=== PATIENT | male | born 1960 | race Caucasian/White ===

== ENCOUNTER 2019-10-10 12:45 | Outpatient (RCR) | payer OTHER, SELFPAY ==
--- NOTE | 2019-08-29 17:42 | PT.OIE ---
Current Diagnoses Weakness (08/29/19) Other reduced mobility (08/29/19) Visit Care Team Role Provider Type Kd Melendez MD Primary Care Provider Physician Specialty: Family Practice Address: [address] [place] [address] [address], [place], [address] Email: [email or web address] Ted Hubbard Attending Provider Non-Staff Specialty: Medical Address: [address] [place] [address], [address], [place], [address] Email: Physical Therapy Initial Evaluation PT-OP-A Visit Information Start: 08/25/19 20:08 Freq: Status: Active Protocol: Document 08/29/19 09:45 LRN (Rec: 08/29/19 10:46 LRN [id number]) Out-Patient Physical Therapy Visit Information Visit Information Visit Type Initial Evaluation Visit Note Extra time taken for history review Visit Start Time 09:45 Visit Stop Time 10:45 Total Visit Minutes 60 Visit Number 1 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 Current L foot plantar fasciitis. Hx of fx neck - 2003 PT-OP-B Current Condition Start: 08/25/19 20:08 Freq: Status: Active Protocol: Document 08/29/19 09:45 LRN (Rec: 08/29/19 10:46 LRN [id number]) Current Condition History of Current Condition Onset Date 07/25/19 Current Complaints Poor gait, weakness of RLE and shoulder, pain in R shoulder. History of Current Condition Pt reports having 5 strokes within a 6 day period. His final stroke was on 07/25/19 causing paralysis of his R side affecting his ERIK in the brainstem, and slurred speech . Prior Treatments and Tests MRI's and CT scans. Reports unavailable. Developmental History Developmental History 07/20/19, , , and . Pt reports 30min after having a flu shot on 07/20/19 he developed L sided headaches and R foot drop while at work. He also has a little trouble swallowing. He was given TPA at [facility], 10-15' later symptoms cleared. He was air lifted to [facility], then driven to [facility]. On he had a MRI and was given an Ativan x 2 due to claustrophobia and developed R facial droop for 1 -2 days. Given Ativan for another MRI and 20-30' later had total R paralysis. MRI showed no stroke. Symptom was only stuttering and he could walk w/o a cane. On 08/23/19 he was sent home to do physical therapy. On 08/24/19 his hand became shaky, went to bed, but realized his hand was loosing strength and became paralyzed on the R side , then the L side. After 10 minutes he was able to stand up and walk onto a stretcher and was taken to [facility]. He states by the time he reached [facility] he had recovered. A head CT found no brain change. Next day he was to be discharged, but within the hour to discharge he had another stroke with R LE paralysis. On 08/25/18 he was taken to [facility] by personal car, and when he reached [facility] he was given another test that showed he had a stroke in the ERIK region of the brainstem. [facility] wanted him to do PT in , but he requested PT @ [facility] and did 2 weeks in PT prior to being discharged home. Treatment Goals Patient/Caregiver Goals Pt goal is to normalize gait to avoid developing back or hip problems. Pt goal is to strengthen the R shoulder to be able to hang pots/pans for storage. Pt goal is to be able to normalize the ability to open up the R hand (separate fingers). Pt goal is to be able to be placed on an exercise program he can continue at his local gym. 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 Current Functional Impairments (Reported) Functional Limitations- ADL's R shoulder pain with lifting of R UE out to the side and has difficulty hanging pots back up. Functional Limitations- Mobility/Gait Gait deviation due to R LE weakness. Walking, catches toes sometimes. Functional Limitations- Recreation/ 1 week of exercising (now on Hobbies 2nd week) at local gym 3x/week for 30 minutes and doing leg strengthening on machines. 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 Current L foot plantar fasciitis. Neck fx 2004. PT-OP-D Balance Start: 08/25/19 20:08 Freq: Status: Active Protocol: Document 08/29/19 09:45 LRN (Rec: 08/29/19 16:50 LRN [id number]) Balance Tests Hendrickson Balance Test Hendrickson Balance Test Score 51 Hendrickson Impairment Rating 1 to 19% Impaired (Score 45-55 ) Single Limb Standing Single Limb- Right 3 Single Limb- Left 9 Tandem Tandem Standing L foot back: 29.75, R foot back: 60, balance w/arms PT-OP-G Mobility & Gait Start: 08/25/19 20:08 Freq: Status: Active Protocol: Document 08/29/19 09:45 LRN (Rec: 08/29/19 16:50 LRN [id number]) OP Gait Assessment Gait Gait Assistance Required: Independent Able to Maintain Weight Bearing Status Yes During Gait Assistive Devices Assistive Device None Orthotic/Prosthetic Devices or Brace: No Gait Deviations General Gait Pattern Decreased Feet Clearance, Lateral Trunk Lean Comments Gait Comments RLE: Lacks heel strike and clearance of foot on swing through phase. Trendelenburg type gait with lean Right. Gait speed: 10' walk: 2.17 ft/sec 20' walk: 2.41 ft/sec (avg for 60-69 yr olds: 1.26 ft/sec, preferred 3.11 ft/sec, max 3.95 ft/sec) Stair Climbing Evaluation Evaluation Level of Assist On Stairs Independent Devices Stair Climbing Assistive Devices None Technique/Endurance Stair Climbing Direction Ascend and Descend Stair Climbing Technique Step Over Step Number of Steps Climbed 4 Stair Climbing Set # Repetitions (reps) 2 Comments Stair Climbing Comments Lacks smooth lift onto RLE ( shoves self up step on the right) ascending steps. PT-OP-H Neuro Start: 08/25/19 20:08 Freq: Status: Active Protocol: Document 08/29/19 09:45 LRN (Rec: 08/29/19 16:50 LRN [id number]) Sensation Evaluation Gross Sensation Gross Sensation WNL Coordination Evaluation Lower Extremity Tests Right Heel on Wen Test Minimal Impairment Lower Extremity Fixation/Position Normal Performance Holding Test Vital Signs Comments Vital Signs Comments Pt reports BP is usually 155/ 100 and Pulse is 55. PT-OP-J Posture/Palpation/Skin Start: 08/25/19 20:08 Freq: Status: Active Protocol: Document 08/29/19 09:45 LRN (Rec: 08/29/19 10:46 LRN [id number]) Posture Evaluation Position Standing Evaluation View All positions Head/C-Spine Posture Side Bent Left T-Spine Posture Increased Kyphosis L-Spine Posture Increased Lordosis Comments Posture Comments Mild sway back posturing. PT-OP-K Range of Motion Start: 08/25/19 20:08 Freq: Status: Active Protocol: Document 08/29/19 09:45 LRN (Rec: 08/29/19 16:50 LRN [id number]) Hip Goniometric Range of Motion Hip Left Active Hip ROM WFL Yes Testing Position Sitting Internal Rotation 18 Right Active Hip ROM WFL No Testing Position Sitting Internal Rotation 7 Ankle and Foot Goniometric Range of Motion Ankle and Foot Left Active Ankle/Foot ROM WFL Yes Testing Position Supine Dorsiflexion with Knee Extended 7 Eversion 12 Right Active Ankle/Foot ROM WFL No Testing Position Supine Eversion 0 Ankle and Foot ROM Limitations ROM Limitations Muscle Weakness Comments R ankle DF: Lacks 15 deg's to neutral. R PF - WNL PT-OP-M Strength Start: 08/25/19 20:08 Freq: Status: Active Protocol: Document 08/29/19 09:45 LRN (Rec: 08/29/19 16:50 LRN [id number]) Trunk Strength Trunk Manual Muscle Testing Testing Position Supine Core Stabilization Pt unable to maintain core stability with MMT of LE's. Hip Strength Hip Manual Muscle Testing Right Flexion (L2) 5 Normal Extension (S1) 3- Fair- Abduction 4+ Good+ Adduction 2+ Poor+ External Rotation 3- Fair- Internal Rotation 2- Poor- Left Comments WNL: Generally 5/5. Knee Strength Knee Manual Muscle Testing Right Flexion (S2) 3+ Fair+ Extension (L3) 3+ Fair+ Left Comments WNL - 5/5 Ankle/Foot Strength Ankle and Foot Manual Muscle Testing Right Dorsiflexion (L4) 2- Poor- Plantarflexion (S1) 4+ Good+ Inversion 4+ Good+ Eversion (S1) 1 Trace Left Comments WNL - 5/5 PT-OP-Q Treatments Start: 08/25/19 20:08 Freq: Status: Active Protocol: Document 08/29/19 09:45 LRN (Rec: 08/29/19 16:50 LRN [id number]) Self-Care/Home Management Treatment Education Patient Education Home Exercise Program Activities Self-Care/Home Management Activities Briefly discussed pt's gym work out. Pt good to exercise as long as blood pressure is stable and he has no pain. PT-OP-T Assessment and Plan Start: 08/25/19 20:08 Freq: Status: Active Protocol: Document 08/29/19 09:45 LRN (Rec: 08/29/19 10:46 LRN [id number]) Physical Therapy Assessment Rehab Potential Rehabilitation Potential Excellent Evaluation Complexity Number of Personal Factors/Comorbidities 3 or More Number of Body Systems Impaired 4 or More Clinical Presentation at Evaluation Stable Impairments Impairments Activity Tolerance,Balance, Gait,ROM,Strength Goals Five Impairment R shoulder pain with use above shoulder height. Short Term Goal (STG) Increase R shoulder and normalize finger AB strength/ mobility to improve active use of R UE. STG Duration 10/28/19 Senior Living Goal (LTG) Strengthen the R shoulder in order to be able to hang pots/ pans for storage without pain. LTG Duration 11/27/19 Four Impairment Decreased R ankle DF AROM Short Term Goal (STG) Improve active R ankle DF to 0 deg's STG Duration 10/28/19 Senior Living Goal (LTG) Improve ankle DF AROM to no less than 5 deg's to improve gait mechanics and eliminate pt catching toes during gait and improving his safety with gait. LTG Duration 11/27/19 Three Impairment Decreased R ankle strength. Short Term Goal (STG) Improve R ankle EV strength to improve SLS for improved safety with gait. STG Duration 10/28/19 Hogshead Inspector Goal (LTG) Improve R ankle DF strength to no less than 3+/5 to improve gait and minimize gait deviations to decreased risk of falling. LTG Duration 11/27/19 Two Impairment Decreased R hip/knee strength. Hogshead Inspector Goal (LTG) Improve R hip and knee strength to no less than 4/5 in order to eliminate trendelenburg gait and normalize gait mechanics to improve safety with gait. LTG Duration 11/27/19 One Impairment Lacks independent self care HEP. Senior Living Goal (LTG) Pt will be independent in a self care gym and HEP. LTG Duration 11/27/19 Assessment Summary Assessment Pt presents s/p multiple reports of L CVA from 07/20/20 through 07/25/20, with trunk & R LE weakness, R UE weakness and pain, resulting in gait deviations and decreased balance. His tolerance to activity and functional mobility with gait and stairs is decreased. The pt will benefit from skilled physical therapy for stroke rehabilitation to improve R sided weakness and improve safety with gait and functional gait on level and stairs. Physical Therapy Plan Frequency and Duration Frequency of Treatment 2x/Week Plan of Care Start Date 08/29/19 Plan of Care End Date 11/27/19 Therapeutic Interventions Therapeutic Interventions Aquatic Therapy,Balance Training,Gait Training,Home Exercise Program,Neuromuscular Re-education,Patient/ Caregiver Education,Self-Care/ Home Management,Taping, Therapeutic Exercises Modalities Electric Stimulation Next Visit Focus/Plan Next Note Type Treatment Note Next Visit Plan Check R shoulder ROM/strength and start RC strengthening. Start ankle (DF/EV), knee ( flex/ext) & hip (AB/AD/ext/IR/ ER), and trunk strengthening. Might try bike or recumbent stepper for ankle DF strengthening. Check passive ankle DF/EV. Gait training for improved mechanics and speed of gait. Progress pt onto HEP/gym program, then decrease to 1x/week for f/u and advancement of program as needed.
--- NOTE | 2019-08-29 17:43 | PT.OPPOC ---
Physical, Occupational & Speech Therapy At [facility] Current Diagnoses Weakness (08/29/19) Other reduced mobility (08/29/19) Visit Care Team Role Provider Type Kd Melendez MD Primary Care Provider Physician Specialty: Family Practice Address: [address] [place] [address] [address], [address] Email: [email or web address] Ted Hubbard Attending Provider Non-Staff Specialty: Medical Address: [address] [place] [address] [address], [place], [address] Email: Plan Of Care PT-OP-T Assessment and Plan Start: 08/25/19 20:08 Freq: Status: Active Protocol: Document 08/29/19 09:45 LRN (Rec: 08/29/19 10:46 LRN [id number]) Physical Therapy Assessment Rehab Potential Rehabilitation Potential Excellent Evaluation Complexity Number of Personal Factors/Comorbidities 3 or More Number of Body Systems Impaired 4 or More Clinical Presentation at Evaluation Stable Impairments Impairments Activity Tolerance,Balance, Gait,ROM,Strength Goals Five Impairment R shoulder pain with use above shoulder height. Short Term Goal (STG) Increase R shoulder and normalize finger AB strength/ mobility to improve active use of R UE. STG Duration 10/28/19 Penitentiary Goal (LTG) Strengthen the R shoulder in order to be able to hang pots/ pans for storage without pain. LTG Duration 11/27/19 Four Impairment Decreased R ankle DF AROM Short Term Goal (STG) Improve active R ankle DF to 0 deg's STG Duration 10/28/19 Emergency Department Technician Goal (LTG) Improve ankle DF AROM to no less than 5 deg's to improve gait mechanics and eliminate pt catching toes during gait and improving his safety with gait. LTG Duration 11/27/19 Three Impairment Decreased R ankle strength. Short Term Goal (STG) Improve R ankle EV strength to improve SLS for improved safety with gait. STG Duration 10/28/19 Emergency Department Technician Goal (LTG) Improve R ankle DF strength to no less than 3+/5 to improve gait and minimize gait deviations to decreased risk of falling. LTG Duration 11/27/19 Two Impairment Decreased R hip/knee strength. Penitentiary Goal (LTG) Improve R hip and knee strength to no less than 4/5 in order to eliminate trendelenburg gait and normalize gait mechanics to improve safety with gait. LTG Duration 11/27/19 One Impairment Lacks independent self care HEP. Emergency Department Technician Goal (LTG) Pt will be independent in a self care gym and HEP. LTG Duration 11/27/19 Assessment Summary Assessment Pt presents s/p multiple reports of L CVA from 07/20/20 through 07/25/20, with trunk & R LE weakness, R UE weakness and pain, resulting in gait deviations and decreased balance. His tolerance to activity and functional mobility with gait and stairs is decreased. The pt will benefit from skilled physical therapy for stroke rehabilitation to improve R sided weakness and improve safety with gait and functional gait on level and stairs. Physical Therapy Plan Frequency and Duration Frequency of Treatment 2x/Week Plan of Care Start Date 08/29/19 Plan of Care End Date 11/27/19 Therapeutic Interventions Therapeutic Interventions Aquatic Therapy,Balance Training,Gait Training,Home Exercise Program,Neuromuscular Re-education,Patient/ Caregiver Education,Self-Care/ Home Management,Taping, Therapeutic Exercises Modalities Electric Stimulation Next Visit Focus/Plan Next Note Type Treatment Note Next Visit Plan Check R shoulder ROM/strength and start RC strengthening. Start ankle (DF/EV), knee ( flex/ext) & hip (AB/AD/ext/IR/ ER), and trunk strengthening. Might try bike or recumbent stepper for ankle DF strengthening. Check passive ankle DF/EV. Gait training for improved mechanics and speed of gait. Progress pt onto HEP/gym program, then decrease to 1x/week for f/u and advancement of program as needed. Plan of Care Dates Plan of Care Start Date 08/29/19 Plan of Care End Date 11/27/19 Electronically Signed by: Kiara Robert, PT 08/29/19 1959 Please Sign and Return: I have reviewed this Plan of Care and certify that the skilled therapy services above are required to meet the patient?s needs. Physician Signature Date Printed Name and Credentials Clinical Instructor Signature Printed Name and Credentials
--- NOTE | 2019-08-29 17:43 | PT.OPPOC ---
Physical, Occupational & Speech Therapy At [facility] Current Diagnoses Weakness (08/29/19) Other reduced mobility (08/29/19) Visit Care Team Role Provider Type Kd Melendez MD Primary Care Provider Physician Specialty: Family Practice Address: [address] [place] [address] [address], [address] Email: [email or web address] Ted Hubbard Attending Provider Non-Staff Specialty: Medical Address: [address] [place] [address] [address], [place], [address] Email: Plan Of Care PT-OP-T Assessment and Plan Start: 08/25/19 20:08 Freq: Status: Active Protocol: Document 08/29/19 09:45 LRN (Rec: 08/29/19 10:46 LRN [id number]) Physical Therapy Assessment Rehab Potential Rehabilitation Potential Excellent Evaluation Complexity Number of Personal Factors/Comorbidities 3 or More Number of Body Systems Impaired 4 or More Clinical Presentation at Evaluation Stable Impairments Impairments Activity Tolerance,Balance, Gait,ROM,Strength Goals Five Impairment R shoulder pain with use above shoulder height. Short Term Goal (STG) Increase R shoulder and normalize finger AB strength/ mobility to improve active use of R UE. STG Duration 10/28/19 Snf Goal (LTG) Strengthen the R shoulder in order to be able to hang pots/ pans for storage without pain. LTG Duration 11/27/19 Four Impairment Decreased R ankle DF AROM Short Term Goal (STG) Improve active R ankle DF to 0 deg's STG Duration 10/28/19 Heel Builder Machine Goal (LTG) Improve ankle DF AROM to no less than 5 deg's to improve gait mechanics and eliminate pt catching toes during gait and improving his safety with gait. LTG Duration 11/27/19 Three Impairment Decreased R ankle strength. Short Term Goal (STG) Improve R ankle EV strength to improve SLS for improved safety with gait. STG Duration 10/28/19 Heel Builder Machine Goal (LTG) Improve R ankle DF strength to no less than 3+/5 to improve gait and minimize gait deviations to decreased risk of falling. LTG Duration 11/27/19 Two Impairment Decreased R hip/knee strength. Snf Goal (LTG) Improve R hip and knee strength to no less than 4/5 in order to eliminate trendelenburg gait and normalize gait mechanics to improve safety with gait. LTG Duration 11/27/19 One Impairment Lacks independent self care HEP. Heel Builder Machine Goal (LTG) Pt will be independent in a self care gym and HEP. LTG Duration 11/27/19 Assessment Summary Assessment Pt presents s/p multiple reports of L CVA from 07/20/20 through 07/25/20, with trunk & R LE weakness, R UE weakness and pain, resulting in gait deviations and decreased balance. His tolerance to activity and functional mobility with gait and stairs is decreased. The pt will benefit from skilled physical therapy for stroke rehabilitation to improve R sided weakness and improve safety with gait and functional gait on level and stairs. Physical Therapy Plan Frequency and Duration Frequency of Treatment 2x/Week Plan of Care Start Date 08/29/19 Plan of Care End Date 11/27/19 Therapeutic Interventions Therapeutic Interventions Aquatic Therapy,Balance Training,Gait Training,Home Exercise Program,Neuromuscular Re-education,Patient/ Caregiver Education,Self-Care/ Home Management,Taping, Therapeutic Exercises Modalities Electric Stimulation Next Visit Focus/Plan Next Note Type Treatment Note Next Visit Plan Check R shoulder ROM/strength and start RC strengthening. Start ankle (DF/EV), knee ( flex/ext) & hip (AB/AD/ext/IR/ ER), and trunk strengthening. Might try bike or recumbent stepper for ankle DF strengthening. Check passive ankle DF/EV. Gait training for improved mechanics and speed of gait. Progress pt onto HEP/gym program, then decrease to 1x/week for f/u and advancement of program as needed. Plan of Care Dates Plan of Care Start Date 08/29/19 Plan of Care End Date 11/27/19 Electronically Signed by: Kiara Robert, PT 08/29/19 [id number] Please Sign and Return: I have reviewed this Plan of Care and certify that the skilled therapy services above are required to meet the patient?s needs. Physician Signature Date Printed Name and Credentials Clinical Instructor Signature Printed Name and Credentials
--- NOTE | 2019-09-01 14:56 | PT.OTN ---
Current Diagnoses Weakness (09/01/19) Other reduced mobility (09/01/19) Physical Therapy Treatment Note PT-OP-A Visit Information Start: 08/25/19 20:08 Freq: Status: Active Protocol: Document 09/01/19 13:45 LRN (Rec: 09/01/19 14:54 LRN [id number]) Out-Patient Physical Therapy Visit Information Visit Information Visit Type Treatment Note Visit Start Time 13:45 Visit Stop Time 14:34 Total Visit Minutes 49 Visit Number 2 Evaluation Information Evaluation Date 08/29/19 PT-OP-B Current Condition Start: 08/25/19 20:08 Freq: Status: Active Protocol: Document 08/29/19 09:45 LRN (Rec: 08/29/19 10:46 LRN [id number]) Current Condition History of Current Condition Onset Date 07/25/19 Current Complaints Poor gait, weakness of RLE and shoulder, pain in R shoulder. History of Current Condition Pt reports having 5 strokes within a 6 day period. His final stroke was on 07/25/19 causing paralysis of his R side affecting his ERIK in the brainstem, and slurred speech . Prior Treatments and Tests MRI's and CT scans. Reports unavailable. Developmental History Developmental History 07/20/19, , , and . Pt reports 30min after having a flu shot on 07/20/19 he developed L sided headaches and R foot drop while at work. He also has a little trouble swallowing. He was given TPA at [facility], 10-15' later symptoms cleared. He was air lifted to [facility], then driven to [facility]. On he had a MRI and was given an Ativan x 2 due to claustrophobia and developed R facial droop for 1 -2 days. Given Ativan for another MRI and 20-30' later had total R paralysis. MRI showed no stroke. Symptom was only stuttering and he could walk w/o a cane. On 08/23/19 he was sent home to do physical therapy. On 08/24/19 his hand became shaky, went to bed, but realized his hand was loosing strength and became paralyzed on the R side , then the L side. After 10 minutes he was able to stand up and walk onto a stretcher and was taken to [facility]. He states by the time he reached [facility] he had recovered. A head CT found no brain change. Next day he was to be discharged, but within the hour to discharge he had another stroke with R LE paralysis. On 08/25/18 he was taken to [facility] by personal car, and when he reached [facility] he was given another test that showed he had a stroke in the ERIK region of the brainstem. [facility] wanted him to do PT in , but he requested PT @ [facility] and did 2 weeks in PT prior to being discharged home. Treatment Goals Patient/Caregiver Goals Pt goal is to normalize gait to avoid developing back or hip problems. Pt goal is to strengthen the R shoulder to be able to hang pots/pans for storage. Pt goal is to be able to normalize the ability to open up the R hand (separate fingers). Pt goal is to be able to be placed on an exercise program he can continue at his local gym. 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 Current Functional Impairments (Reported) Functional Limitations- ADL's R shoulder pain with lifting of R UE out to the side and has difficulty hanging pots back up. Functional Limitations- Mobility/Gait Gait deviation due to R LE weakness. Walking, catches toes sometimes. Functional Limitations- Recreation/ 1 week of exercising (now on Hobbies 2nd week) at local gym 3x/week for 30 minutes and doing leg strengthening on machines. 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 Current L foot plantar fasciitis. Neck fx 2003. PT-OP-C Subjective Start: 08/25/19 20:08 Freq: Status: Active Protocol: Document 09/01/19 13:45 LRN (Rec: 09/01/19 14:54 LRN [id number]) OP-PT Subjective Patient Comments Patient Comments States he is exercising at gym . Requests ex for hand to improve ability to open fingers and straighten fingers . PT-OP-D Balance Start: 08/25/19 20:08 Freq: Status: Active Protocol: Document 08/29/19 09:45 LRN (Rec: 08/29/19 16:50 LRN [id number]) Balance Tests Hendrickson Balance Test Hendrickson Balance Test Score 51 Hendrickson Impairment Rating 1 to 19% Impaired (Score 45-55 ) Single Limb Standing Single Limb- Right 3 Single Limb- Left 9 Tandem Tandem Standing L foot back: 29.75, R foot back: 60, balance w/arms PT-OP-G Mobility & Gait Start: 08/25/19 20:08 Freq: Status: Active Protocol: Document 08/29/19 09:45 LRN (Rec: 08/29/19 16:50 LRN [id number]) OP Gait Assessment Gait Gait Assistance Required: Independent Able to Maintain Weight Bearing Status Yes During Gait Assistive Devices Assistive Device None Orthotic/Prosthetic Devices or Brace: No Gait Deviations General Gait Pattern Decreased Feet Clearance, Lateral Trunk Lean Comments Gait Comments RLE: Lacks heel strike and clearance of foot on swing through phase. Trendelenburg type gait with lean Right. Gait speed: 10' walk: 2.17 ft/sec 20' walk: 2.41 ft/sec (avg for 60-69 yr olds: 1.26 ft/sec, preferred 3.11 ft/sec, max 3.95 ft/sec) Stair Climbing Evaluation Evaluation Level of Assist On Stairs Independent Devices Stair Climbing Assistive Devices None Technique/Endurance Stair Climbing Direction Ascend and Descend Stair Climbing Technique Step Over Step Number of Steps Climbed 4 Stair Climbing Set # Repetitions (reps) 2 Comments Stair Climbing Comments Lacks smooth lift onto RLE ( shoves self up step on the right) ascending steps. PT-OP-H Neuro Start: 08/25/19 20:08 Freq: Status: Active Protocol: Document 08/29/19 09:45 LRN (Rec: 08/29/19 16:50 LRN [id number]) Sensation Evaluation Gross Sensation Gross Sensation WNL Coordination Evaluation Lower Extremity Tests Right Heel on Wen Test Minimal Impairment Lower Extremity Fixation/Position Normal Performance Holding Test Vital Signs Comments Vital Signs Comments Pt reports BP is usually 155/ 100 and Pulse is 55. PT-OP-J Posture/Palpation/Skin Start: 08/25/19 20:08 Freq: Status: Active Protocol: Document 08/29/19 09:45 LRN (Rec: 08/29/19 10:46 LRN [id number]) Posture Evaluation Position Standing Evaluation View All positions Head/C-Spine Posture Side Bent Left T-Spine Posture Increased Kyphosis L-Spine Posture Increased Lordosis Comments Posture Comments Mild sway back posturing. PT-OP-K Range of Motion Start: 08/25/19 20:08 Freq: Status: Active Protocol: Document 09/01/19 13:45 LRN (Rec: 09/01/19 14:54 LRN [id number]) Shoulder Goniometric Range of Motion Shoulder Right Active Flexion 180 Abduction 170 External Rotation at 90 degrees 90 Abduction Left Active Testing Position Sitting Flexion 180 Abduction 180 External Rotation at 90 degrees 90 Abduction Shoulder ROM Limitations Comments Sitting: Shoulder IR is WNL bilaterally. PT-OP-M Strength Start: 08/25/19 20:08 Freq: Status: Active Protocol: Document 09/01/19 13:45 LRN (Rec: 09/01/19 14:54 LRN [id number]) Shoulder Strength Shoulder Manual Muscle Testing Right Flexion 4 Good Abduction (C5) 3+ Fair+ External Rotation 3- Fair- Internal Rotation 5 Normal Left Flexion 5 Normal Abduction (C5) 5 Normal External Rotation 5 Normal Internal Rotation 5 Normal PT-OP-Q Treatments Start: 08/25/19 20:08 Freq: Status: Active Protocol: Document 09/01/19 13:45 LRN (Rec: 09/01/19 14:54 LRN [id number]) Gym Equipment Cable Column (Body Solid) Leg Extension Details Leg Ext: Active > Assisted > Bernie > Ecc, with proper breathing Resistance 20# Reps/Time 15x Leg Curl Details Leg Curl: Active > Assisted > Bernie > Ecc, with proper breathing Resistance 20# Reps/Time 15x Therapeutic Exercises Sitting Exercises Ankle DF Sitting Exercise Name Ankle DF: Active > Assisted > Bernie > Ecc Side right Equipment Used Belt to help lift the foot Reps/Minutes 15x Ankle IV Sitting Exercise Name Ankle IV Side bilateral Resistance Lev 2 TB Reps/Minutes to fatigue Comments R>L Ankle EV Sitting Exercise Name Ankle EV Side bilateral Resistance Lev 2 TB Reps/Minutes to fatigue Comments R>L Self-Care/Home Management Treatment Education Patient Education Home Exercise Program Other Education Adjusted SPC for proper hgt. Activities Self-Care/Home Management Activities Issued & reveiwed HEP: Ankle EV & IV. I/S pt in use of ankle PF wgt strengthening @ gym. Lev 2 TBand issued. PT-OP-T Assessment and Plan Start: 08/25/19 20:08 Freq: Status: Active Protocol: Document 09/01/19 13:45 LRN (Rec: 09/01/19 14:54 LRN [id number]) Physical Therapy Assessment Goals Five Impairment R shoulder pain with use above shoulder height. Short Term Goal (STG) Increase R shoulder and normalize finger AB strength/ mobility to improve active use of R UE. STG Duration 10/28/19 Care Home Goal (LTG) Strengthen the R shoulder in order to be able to hang pots/ pans for storage without pain. LTG Duration 11/27/19 Four Impairment Decreased R ankle DF AROM Short Term Goal (STG) Improve active R ankle DF to 0 deg's STG Duration 10/28/19 Care Home Goal (LTG) Improve ankle DF AROM to no less than 5 deg's to improve gait mechanics and eliminate pt catching toes during gait and improving his safety with gait. LTG Duration 11/27/19 Three Impairment Decreased R ankle strength. Short Term Goal (STG) Improve R ankle EV strength to improve SLS for improved safety with gait. STG Duration 10/28/19 Transit Bus Driver Goal (LTG) Improve R ankle DF strength to no less than 3+/5 to improve gait and minimize gait deviations to decreased risk of falling. LTG Duration 11/27/19 Two Impairment Decreased R hip/knee strength. Care Home Goal (LTG) Improve R hip and knee strength to no less than 4/5 in order to eliminate trendelenburg gait and normalize gait mechanics to improve safety with gait. LTG Duration 11/27/19 One Impairment Lacks independent self care HEP. Care Home Goal (LTG) Pt will be independent in a self care gym and HEP. LTG Duration 11/27/19 (09/01/19: Progressing) Assessment Summary Assessment Pt s/p multiple L CVA onset from 07/20/20 through 07/25/20 . R shoulder is +impingement with weakness of ER's and scapular stabilizers ( depressors), with pain on flex & AB. Pt lacks R ankle DF; therefore tends to drag R toe with gait. Pt lacks 4th and 5th digit ext and AB. Pt needs training for proper breathing during exercise. Physical Therapy Plan Frequency and Duration Frequency of Treatment 2x/Week Plan of Care Start Date 08/29/19 Plan of Care End Date 11/27/19 Next Visit Focus/Plan Next Note Type Treatment Note Next Visit Plan Add to HEP: RC ex's, ankle DF , knee (flex/ext), & hip (AB/ AD/ext/IR/ER), and trunk strengthening. Add scapular depressors and training for painfree flex/AB mobility. JMT as needed. Might try bike or recumbent stepper for ankle DF strengthening. Check passive ankle DF/EV. Gait training for improved mechanics and speed of gait. Progress pt onto HEP/gym program, then decrease to 1x/ week for f/u and advancement of program as needed.
--- NOTE | 2019-09-04 16:04 | PT.OTN ---
Current Diagnoses Weakness (09/04/19) Other reduced mobility (09/04/19) Physical Therapy Treatment Note PT-OP-A Visit Information Start: 08/25/19 20:08 Freq: Status: Active Protocol: Document 09/04/19 13:45 LRN (Rec: 09/04/19 14:24 LRN [id number]) Out-Patient Physical Therapy Visit Information Visit Information Visit Type Treatment Note Visit Start Time 13:45 Visit Stop Time 14:29 Total Visit Minutes 44 Visit Number 3 Number of DIRECTOR OF TESTING Visits 0 Evaluation Information Evaluation Date 08/29/19 Precautions Precautions 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 Current L foot plantar fasciitis. Hx of fx neck - 2003 PT-OP-B Current Condition Start: 08/25/19 20:08 Freq: Status: Active Protocol: Document 08/29/19 09:45 LRN (Rec: 08/29/19 10:46 LRN [id number]) Current Condition History of Current Condition Onset Date 07/25/19 Current Complaints Poor gait, weakness of RLE and shoulder, pain in R shoulder. History of Current Condition Pt reports having 5 strokes within a 6 day period. His final stroke was on 07/25/19 causing paralysis of his R side affecting his ERIK in the brainstem, and slurred speech . Prior Treatments and Tests MRI's and CT scans. Reports unavailable. Developmental History Developmental History 07/20/19, , , and . Pt reports 30min after having a flu shot on 07/20/19 he developed L sided headaches and R foot drop while at work. He also has a little trouble swallowing. He was given TPA at [facility], 10-15' later symptoms cleared. He was air lifted to [facility], then driven to [facility]. On he had a MRI and was given an Ativan x 2 due to claustrophobia and developed R facial droop for 1 -2 days. Given Ativan for another MRI and 20-30' later had total R paralysis. MRI showed no stroke. Symptom was only stuttering and he could walk w/o a cane. On 08/23/19 he was sent home to do physical therapy. On 08/24/19 his hand became shaky, went to bed, but realized his hand was loosing strength and became paralyzed on the R side , then the L side. After 10 minutes he was able to stand up and walk onto a stretcher and was taken to [facility]. He states by the time he reached [facility] he had recovered. A head CT found no brain change. Next day he was to be discharged, but within the hour to discharge he had another stroke with R LE paralysis. On 08/25/18 he was taken to [facility] by personal car, and when he reached [facility] he was given another test that showed he had a stroke in the ERIK region of the brainstem. [facility] wanted him to do PT in , but he requested PT @ [facility] and did 2 weeks inpt PT prior to being discharged home. Treatment Goals Patient/Caregiver Goals Pt goal is to normalize gait to avoid developing back or hip problems. Pt goal is to strengthen the R shoulder to be able to hang pots/pans for storage. Pt goal is to be able to normalize the ability to open up the R hand (separate fingers). Pt goal is to be able to be placed on an exercise program he can continue at his local gym. 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 Current Functional Impairments (Reported) Functional Limitations- ADL's R shoulder pain with lifting of R UE out to the side and has difficulty hanging pots back up. Functional Limitations- Mobility/Gait Gait deviation due to R LE weakness. Walking, catches toes sometimes. Functional Limitations- Recreation/ 1 week of exercising (now on Hobbies 2nd week) at local gym 3x/week for 30 minutes and doing leg strengthening on machines. 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 Current L foot plantar fasciitis. Neck fx 2003. PT-OP-C Subjective Start: 08/25/19 20:08 Freq: Status: Active Protocol: Document 09/04/19 13:45 LRN (Rec: 09/04/19 14:24 LRN [id number]) OP-PT Subjective Patient Comments Patient Comments Requests therapy 1x/week and he works independently in gym 1x/week. PT-OP-D Balance Start: 08/25/19 20:08 Freq: Status: Active Protocol: Document 08/29/19 09:45 LRN (Rec: 08/29/19 16:50 LRN [id number]) Balance Tests Hendrickson Balance Test Hendrickson Balance Test Score 51 Hendrickson Impairment Rating 1 to 19% Impaired (Score 45-55 ) Single Limb Standing Single Limb- Right 3 Single Limb- Left 9 Tandem Tandem Standing L foot back: 29.75, R foot back: 60, balance w/arms PT-OP-G Mobility & Gait Start: 08/25/19 20:08 Freq: Status: Active Protocol: Document 08/29/19 09:45 LRN (Rec: 08/29/19 16:50 LRN [id number]) OP Gait Assessment Gait Gait Assistance Required: Independent Able to Maintain Weight Bearing Status Yes During Gait Assistive Devices Assistive Device None Orthotic/Prosthetic Devices or Brace: No Gait Deviations General Gait Pattern Decreased Feet Clearance, Lateral Trunk Lean Comments Gait Comments RLE: Lacks heel strike and clearance of foot on swing through phase. Trendelenburg type gait with lean Right. Gait speed: 10' walk: 2.17 ft/sec 20' walk: 2.41 ft/sec (avg for 60-69 yr olds: 1.26 ft/sec, preferred 3.11 ft/sec, max 3.95 ft/sec) Stair Climbing Evaluation Evaluation Level of Assist On Stairs Independent Devices Stair Climbing Assistive Devices None Technique/Endurance Stair Climbing Direction Ascend and Descend Stair Climbing Technique Step Over Step Number of Steps Climbed 4 Stair Climbing Set # Repetitions (reps) 2 Comments Stair Climbing Comments Lacks smooth lift onto RLE ( shoves self up step on the right) ascending steps. PT-OP-H Neuro Start: 08/25/19 20:08 Freq: Status: Active Protocol: Document 08/29/19 09:45 LRN (Rec: 08/29/19 16:50 LRN [id number]) Sensation Evaluation Gross Sensation Gross Sensation WNL Coordination Evaluation Lower Extremity Tests Right Heel on Wen Test Minimal Impairment Lower Extremity Fixation/Position Normal Performance Holding Test Vital Signs Comments Vital Signs Comments Pt reports BP is usually 155/ 100 and Pulse is 55. PT-OP-J Posture/Palpation/Skin Start: 08/25/19 20:08 Freq: Status: Active Protocol: Document 08/29/19 09:45 LRN (Rec: 08/29/19 10:46 LRN [id number]) Posture Evaluation Position Standing Evaluation View All positions Head/C-Spine Posture Side Bent Left T-Spine Posture Increased Kyphosis L-Spine Posture Increased Lordosis Comments Posture Comments Mild sway back posturing. PT-OP-K Range of Motion Start: 08/25/19 20:08 Freq: Status: Active Protocol: Document 09/01/19 13:45 LRN (Rec: 09/01/19 14:54 LRN [id number]) Shoulder Goniometric Range of Motion Shoulder Right Active Flexion 180 Abduction 170 External Rotation at 90 degrees 90 Abduction Left Active Testing Position Sitting Flexion 180 Abduction 180 External Rotation at 90 degrees 90 Abduction Shoulder ROM Limitations Comments Sitting: Shoulder IR is WNL bilaterally. PT-OP-M Strength Start: 08/25/19 20:08 Freq: Status: Active Protocol: Document 09/01/19 13:45 LRN (Rec: 09/01/19 14:54 LRN [id number]) Shoulder Strength Shoulder Manual Muscle Testing Right Flexion 4 Good Abduction (C5) 3+ Fair+ External Rotation 3- Fair- Internal Rotation 5 Normal Left Flexion 5 Normal Abduction (C5) 5 Normal External Rotation 5 Normal Internal Rotation 5 Normal PT-OP-Q Treatments Start: 08/25/19 20:08 Freq: Status: Active Protocol: Document 09/04/19 13:45 LRN (Rec: 09/04/19 14:24 LRN [id number]) Therapeutic Exercises Supine Exercises Shoulder Flex Supine Exercise Name Active Shoulder Flex (after MWM) Side right Equipment Used PVC Reps/Minutes 10 x 2 Shoulder Flex w/MWM Supine Exercise Name Shoulder Flex w/MWM of scapula Side right Equipment Used PVC Reps/Minutes 10 x 2 Lat Pull Down Supine Exercise Name Lat Pull Down Resistance 2# & Lev 2 T-Band Equipment Used PVC Reps/Minutes 10 x 2 Standing Exercises Shoulder flex Standing Exercise Name Shoulder Flex w/MWM for scapular depression & retraction Reps/Minutes 2x Scapular Depression Standing Exercise Name Scapular Depression Side bilateral Reps/Minutes 10 x 3 Row Standing Exercise Name Row Side bilateral Reps/Minutes 10 x 3 Comments Breath cuing, extra time taken for training of ex with breath work. Shoulder ER Standing Exercise Name Shoulder ER strengthening, alternating with IR Side right Resistance Lev 2 T-Band x 2 bands Reps/Minutes 10 x 3 Shoulder IR Standing Exercise Name Shoulder IR strengthening, alternating with ER Side right Resistance Lev 2 T-Band x 2 bands Reps/Minutes 10 x 3 Manual Therapy Treatment Manual Techniques Sup: Scapular retracion/depression for shoulder flex Type Sup: Scapular retracion/ depression for shoulder flex Body Location Scapular re-ed Body Position Supine Reps/Duration 10x Self-Care/Home Management Treatment Education Patient Education Home Exercise Program Activities Self-Care/Home Management Activities I/S pt in self care ex: Shoulder ER/IR w/T-Band; Row for intrascapular retraction; Scapular depression. I/S pt to avoid lifting above shoulders, no weights overhead . PT-OP-T Assessment and Plan Start: 08/25/19 20:08 Freq: Status: Active Protocol: Document 09/04/19 13:45 LRN (Rec: 09/04/19 14:24 LRN [id number]) Physical Therapy Assessment Goals Five Impairment R shoulder pain with use above shoulder height. Short Term Goal (STG) Increase R shoulder and normalize finger AB strength/ mobility to improve active use of R UE. STG Duration 10/28/19 Hand Profiler Goal (LTG) Strengthen the R shoulder in order to be able to hang pots/ pans for storage without pain. LTG Duration 11/27/19 Four Impairment Decreased R ankle DF AROM Short Term Goal (STG) Improve active R ankle DF to 0 deg's STG Duration 10/28/19 Hand Profiler Goal (LTG) Improve ankle DF AROM to no less than 5 deg's to improve gait mechanics and eliminate pt catching toes during gait and improving his safety with gait. LTG Duration 11/27/19 Three Impairment Decreased R ankle strength. Short Term Goal (STG) Improve R ankle EV strength to improve SLS for improved safety with gait. STG Duration 10/28/19 Hand Profiler Goal (LTG) Improve R ankle DF strength to no less than 3+/5 to improve gait and minimize gait deviations to decreased risk of falling. LTG Duration 11/27/19 Two Impairment Decreased R hip/knee strength. Residential Goal (LTG) Improve R hip and knee strength to no less than 4/5 in order to eliminate trendelenburg gait and normalize gait mechanics to improve safety with gait. LTG Duration 11/27/19 One Impairment Lacks independent self care HEP. Hand Profiler Goal (LTG) Pt will be independent in a self care gym and HEP. LTG Duration 11/27/19 (09/01/19: Progressing) Assessment Summary Assessment Pt lacks scapular retraction, possible weakness L side or pec tightness. Pt demonstrates minimal scapular depression on the L, and no significant depression R. After MWM training in supine, the pt was able to perform active shoulder flex in standing without painful arc x 1 repetition. He progressively demonstrated R shoulder hiking with more repetitions with concurrent onset of impingement. Physical Therapy Plan Frequency and Duration Frequency of Treatment 1x/Week Plan of Care Start Date 08/29/19 Plan of Care End Date 11/27/19 Next Visit Focus/Plan Next Note Type Treatment Note Next Visit Plan Review HEP of shoulder IR/ER/ row/scap depression & Issue HEP for RC ex's. HEP also needed for: ankle DF, knee ( flex/ext), & hip (AB/AD/ext/ IR/ER), and trunk strengthening. Add scapular depressors and training for painfree flex/AB mobility. JMT as needed. Might try bike or recumbent stepper for ankle DF strengthening. Check passive ankle DF/EV. Gait training for improved mechanics and speed of gait. Progress pt onto HEP/gym program, then decrease to 1x/ week for f/u and advancement of program as needed.
--- NOTE | 2019-09-11 08:26 | PT.OTN ---
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 Current L foot plantar fasciitis. Hx of fx neck - 2003 PT-OP-B Current Condition Start: 08/25/19 20:08 Freq: Status: Active Protocol: Document 08/29/19 09:45 LRN (Rec: 08/29/19 10:46 LRN [id number]) Current Condition History of Current Condition Onset Date 07/25/19 Current Complaints Poor gait, weakness of RLE and shoulder, pain in R shoulder. History of Current Condition Pt reports having 5 strokes within a 6 day period. His final stroke was on 07/25/19 causing paralysis of his R side affecting his ERIK in the brainstem, and slurred speech . Prior Treatments and Tests MRI's and CT scans. Reports unavailable. Developmental History Developmental History 07/20/19, , , and . Pt reports 30min after having a flu shot on 07/20/19 he developed L sided headaches and R foot drop while at work. He also has a little trouble swallowing. He was given TPA at [facility], 10-15' later symptoms cleared. He was air lifted to [facility], then driven to [facility]. On he had a MRI and was given an Ativan x 2 due to claustrophobia and developed R facial droop for 1 -2 days. Given Ativan for another MRI and 20-30' later had total R paralysis. MRI showed no stroke. Symptom was only stuttering and he could walk w/o a cane. On 08/23/19 he was sent home to do physical therapy. On 08/24/19 his hand became shaky, went to bed, but realized his hand was loosing strength and became paralyzed on the R side , then the L side. After 10 minutes he was able to stand up and walk onto a stretcher and was taken to [facility]. He states by the time he reached [facility] he had recovered. A head CT found no brain change. Next day he was to be discharged, but within the hour to discharge he had another stroke with R LE paralysis. On 08/25/18 he was taken to [facility] by personal car, and when he reached [facility] he was given another test that showed he had a stroke in the ERIK region of the brainstem. [facility] wanted him to do PT in , but he requested PT @ [facility] and did 2 weeks inpt PT prior to being discharged home. Treatment Goals Patient/Caregiver Goals Pt goal is to normalize gait to avoid developing back or hip problems. Pt goal is to strengthen the R shoulder to be able to hang pots/pans for storage. Pt goal is to be able to normalize the ability to open up the R hand (separate fingers). Pt goal is to be able to be placed on an exercise program he can continue at his local gym. 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 Current Functional Impairments (Reported) Functional Limitations- ADL's R shoulder pain with lifting of R UE out to the side and has difficulty hanging pots back up. Functional Limitations- Mobility/Gait Gait deviation due to R LE weakness. Walking, catches toes sometimes. Functional Limitations- Recreation/ 1 week of exercising (now on Hobbies 2nd week) at local gym 3x/week for 30 minutes and doing leg strengthening on machines. 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 Current L foot plantar fasciitis. Neck fx 2003. PT-OP-C Subjective Start: 08/25/19 20:08 Freq: Status: Active Protocol: Document 09/11/19 07:35 SP (Rec: 09/11/19 11:20 SP [id number]) OP-PT Subjective Patient Comments Patient Comments Pt reported R posterolateral neck was more irritated later in day after last tx, he was thinking that muscles were more loosened up and when was doing activities ususally performs muscles they are recruiting. No adverse reactions. Pt stated L knee feeling more weaker performs upright bike at gym to help but performing LE exercises on own to help but wants to focus R shld during PT tx. PT-OP-D Balance Start: 08/25/19 20:08 Freq: Status: Active Protocol: Document 08/29/19 09:45 LRN (Rec: 08/29/19 16:50 LRN [id number]) Balance Tests Hendrickson Balance Test Hendrickson Balance Test Score 51 Hendrickson Impairment Rating 1 to 19% Impaired (Score 45-55 ) Single Limb Standing Single Limb- Right 3 Single Limb- Left 9 Tandem Tandem Standing L foot back: 29.75, R foot back: 60, balance w/arms PT-OP-G Mobility & Gait Start: 08/25/19 20:08 Freq: Status: Active Protocol: Document 08/29/19 09:45 LRN (Rec: 08/29/19 16:50 LRN [id number]) OP Gait Assessment Gait Gait Assistance Required: Independent Able to Maintain Weight Bearing Status Yes During Gait Assistive Devices Assistive Device None Orthotic/Prosthetic Devices or Brace: No Gait Deviations General Gait Pattern Decreased Feet Clearance, Lateral Trunk Lean Comments Gait Comments RLE: Lacks heel strike and clearance of foot on swing through phase. Trendelenburg type gait with lean Right. Gait speed: 10' walk: 2.17 ft/sec 20' walk: 2.41 ft/sec (avg for 60-69 yr olds: 1.26 ft/sec, preferred 3.11 ft/sec, max 3.95 ft/sec) Stair Climbing Evaluation Evaluation Level of Assist On Stairs Independent Devices Stair Climbing Assistive Devices None Technique/Endurance Stair Climbing Direction Ascend and Descend Stair Climbing Technique Step Over Step Number of Steps Climbed 4 Stair Climbing Set # Repetitions (reps) 2 Comments Stair Climbing Comments Lacks smooth lift onto RLE ( shoves self up step on the right) ascending steps. PT-OP-H Neuro Start: 08/25/19 20:08 Freq: Status: Active Protocol: Document 08/29/19 09:45 LRN (Rec: 08/29/19 16:50 LRN [id number]) Sensation Evaluation Gross Sensation Gross Sensation WNL Coordination Evaluation Lower Extremity Tests Right Heel on Wen Test Minimal Impairment Lower Extremity Fixation/Position Normal Performance Holding Test Vital Signs Comments Vital Signs Comments Pt reports BP is usually 155/ 100 and Pulse is 55. PT-OP-J Posture/Palpation/Skin Start: 08/25/19 20:08 Freq: Status: Active Protocol: Document 08/29/19 09:45 LRN (Rec: 08/29/19 10:46 LRN [id number]) Posture Evaluation Position Standing Evaluation View All positions Head/C-Spine Posture Side Bent Left T-Spine Posture Increased Kyphosis L-Spine Posture Increased Lordosis Comments Posture Comments Mild sway back posturing. PT-OP-K Range of Motion Start: 08/25/19 20:08 Freq: Status: Active Protocol: Document 09/01/19 13:45 LRN (Rec: 09/01/19 14:54 LRN [id number]) Shoulder Goniometric Range of Motion Shoulder Right Active Flexion 180 Abduction 170 External Rotation at 90 degrees 90 Abduction Left Active Testing Position Sitting Flexion 180 Abduction 180 External Rotation at 90 degrees 90 Abduction Shoulder ROM Limitations Comments Sitting: Shoulder IR is WNL bilaterally. PT-OP-M Strength Start: 08/25/19 20:08 Freq: Status: Active Protocol: Document 09/01/19 13:45 LRN (Rec: 09/01/19 14:54 LRN [id number]) Shoulder Strength Shoulder Manual Muscle Testing Right Flexion 4 Good Abduction (C5) 3+ Fair+ External Rotation 3- Fair- Internal Rotation 5 Normal Left Flexion 5 Normal Abduction (C5) 5 Normal External Rotation 5 Normal Internal Rotation 5 Normal PT-OP-Q Treatments Start: 08/25/19 20:08 Freq: Status: Active Protocol: Document 09/11/19 07:35 SP (Rec: 09/11/19 11:20 SP [id number]) Cardio Equipment Recumbent Elliptical ([employer]) Duration (Minutes) 6 Resistance 5 Seat Position 10 Gym Equipment Cable Column (Body Solid) row Details cued scapular depression/ retraction, uprighposture/DNF Resistance 3# Reps/Time 2X10 Therapeutic Exercises Supine Exercises Shoulder Flex w/MWM Supine Exercise Name Shoulder Flex w/MWM of scapula Side right Equipment Used PVC Reps/Minutes 10 x 2 Prone Exercises scap retraction/depression Reps/Minutes 5 sec hold x10 Comments cued DNF (forehead on towel), scap retract/depress neutral ( not use UE A) Standing Exercises Shoulder ER Standing Exercise Name Shoulder ER strengthening, alternating with IR Side right Resistance Lev 2 T-Band x 2 bands Reps/Minutes 10 x 3 Manual Therapy Treatment Soft Tissue Mobilization R pec Body Location mid to distal pec major Mobilization Type Cross-Friction,Sustained Pressure Intensity/Depth Moderate Body Position Hooklying Comments circular strokes prox to distal, pin and small range AROM R arm active release and instruction self application PT-OP-T Assessment and Plan Start: 08/25/19 20:08 Freq: Status: Active Protocol: Document 09/11/19 07:35 SP (Rec: 09/11/19 11:20 SP [id number]) Physical Therapy Assessment Rehab Potential Rehabilitation Potential Excellent Evaluation Complexity Number of Personal Factors/Comorbidities 3 or More Number of Body Systems Impaired 4 or More Clinical Presentation at Evaluation Stable Impairments Impairments Activity Tolerance,Balance, Gait,ROM,Strength Goals Five Impairment R shoulder pain with use above shoulder height. Short Term Goal (STG) Increase R shoulder and normalize finger AB strength/ mobility to improve active use of R UE. STG Duration 10/28/19 Penitentiary Goal (LTG) Strengthen the R shoulder in order to be able to hang pots/ pans for storage without pain. LTG Duration 11/27/19 Four Impairment Decreased R ankle DF AROM Short Term Goal (STG) Improve active R ankle DF to 0 deg's STG Duration 10/28/19 Penitentiary Goal (LTG) Improve ankle DF AROM to no less than 5 deg's to improve gait mechanics and eliminate pt catching toes during gait and improving his safety with gait. LTG Duration 11/27/19 Three Impairment Decreased R ankle strength. Short Term Goal (STG) Improve R ankle EV strength to improve SLS for improved safety with gait. STG Duration 10/28/19 Penitentiary Goal (LTG) Improve R ankle DF strength to no less than 3+/5 to improve gait and minimize gait deviations to decreased risk of falling. LTG Duration 11/27/19 Two Impairment Decreased R hip/knee strength. Laundry Operator Wash Room Goal (LTG) Improve R hip and knee strength to no less than 4/5 in order to eliminate trendelenburg gait and normalize gait mechanics to improve safety with gait. LTG Duration 11/27/19 One Impairment Lacks independent self care HEP. Penitentiary Goal (LTG) Pt will be independent in a self care gym and HEP. LTG Duration 11/27/19 (09/01/19: Progressing) Assessment Summary Assessment Pt really wanted to focus on RUE today. Pt initially demonstrated scapular elevation during AROM reaching OH, improved post isometric prone retraction/depression B together and contact/verbal feedback then applied supine MWM FF and seated rows using column machine for self performance carryover at gym with positive results, cued awareness of upright and slight trunk flexion to decrease retro lean initially noted. Physical Therapy Plan Frequency and Duration Frequency of Treatment 1x/Week Plan of Care Start Date 08/29/19 Plan of Care End Date 11/27/19 Therapeutic Interventions Therapeutic Interventions Aquatic Therapy,Balance Training,Gait Training,Home Exercise Program,Neuromuscular Re-education,Patient/ Caregiver Education,Self-Care/ Home Management,Taping, Therapeutic Exercises Modalities Electric Stimulation Next Visit Focus/Plan Next Note Type Treatment Note Next Visit Plan Initiated biodex warm up, patient states does at gym and upright bike. Reviewed few HEP but continue next tx, continue assess his form with cable row for proper form. Continue per PT POC: Review HEP of shoulder IR/ER/row/scap depression & Issue HEP for RC ex's. HEP also needed for: ankle DF, knee (flex/ext), & hip (AB/AD/ext/IR/ER), and trunk strengthening. Add scapular depressors and training for painfree flex/AB mobility (cable last tx, please give Tb home). JMT as needed. Check passive ankle DF/EV. Gait training for improved mechanics and speed of gait. Progress pt onto HEP/gym program, then decrease to 1x/week for f/u and advancement of program as needed.
--- NOTE | 2019-09-19 13:06 | PT.OTN ---
Current Diagnoses Weakness (09/19/19) Other reduced mobility (09/19/19) Physical Therapy Treatment Note PT-OP-A Visit Information Start: 08/25/19 20:08 Freq: Status: Active Protocol: Document 09/19/19 12:26 SP (Rec: 09/19/19 13:20 SP [id number]) Out-Patient Physical Therapy Visit Information Visit Information Visit Type Treatment Note Visit Start Time 12:20 Visit Stop Time 13:06 Total Visit Minutes 46 Visit Number 5 Number of OLDER WORKER SPECIALIST Visits 2 PT-OP-B Current Condition Start: 08/25/19 20:08 Freq: Status: Active Protocol: Document 08/29/19 09:45 LRN (Rec: 08/29/19 10:46 LRN [id number]) Current Condition History of Current Condition Onset Date 07/25/19 Current Complaints Poor gait, weakness of RLE and shoulder, pain in R shoulder. History of Current Condition Pt reports having 5 strokes within a 6 day period. His final stroke was on 07/25/19 causing paralysis of his R side affecting his ERIK in the brainstem, and slurred speech . Prior Treatments and Tests MRI's and CT scans. Reports unavailable. Developmental History Developmental History 07/20/19, , , and . Pt reports 30min after having a flu shot on 07/20/19 he developed L sided headaches and R foot drop while at work. He also has a little trouble swallowing. He was given TPA at [facility], 10-15' later symptoms cleared. He was air lifted to [facility], then driven to [facility]. On he had a MRI and was given an Ativan x 2 due to claustrophobia and developed R facial droop for 1 -2 days. Given Ativan for another MRI and 20-30' later had total R paralysis. MRI showed no stroke. Symptom was only stuttering and he could walk w/o a cane. On 08/23/19 he was sent home to do physical therapy. On 08/24/19 his hand became shaky, went to bed, but realized his hand was loosing strength and became paralyzed on the R side , then the L side. After 10 minutes he was able to stand up and walk onto a stretcher and was taken to [facility]. He states by the time he reached [facility] he had recovered. A head CT found no brain change. Next day he was to be discharged, but within the hour to discharge he had another stroke with R LE paralysis. On 08/25/18 he was taken to [facility] by personal car, and when he reached [facility] he was given another test that showed he had a stroke in the ERIK region of the brainstem. [facility] wanted him to do PT in , but he requested PT @ [facility] and did 2 weeks in PT prior to being discharged home. Treatment Goals Patient/Caregiver Goals Pt goal is to normalize gait to avoid developing back or hip problems. Pt goal is to strengthen the R shoulder to be able to hang pots/pans for storage. Pt goal is to be able to normalize the ability to open up the R hand (separate fingers). Pt goal is to be able to be placed on an exercise program he can continue at his local gym. 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 Current Functional Impairments (Reported) Functional Limitations- ADL's R shoulder pain with lifting of R UE out to the side and has difficulty hanging pots back up. Functional Limitations- Mobility/Gait Gait deviation due to R LE weakness. Walking, catches toes sometimes. Functional Limitations- Recreation/ 1 week of exercising (now on Hobbies 2nd week) at local gym 3x/week for 30 minutes and doing leg strengthening on machines. 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 Current L foot plantar fasciitis. Neck fx 2003. PT-OP-C Subjective Start: 08/25/19 20:08 Freq: Status: Active Protocol: Document 09/19/19 12:20 SP (Rec: 09/19/19 13:22 SP [id number]) OP-PT Subjective Patient Comments Patient Comments Pt reported doing well at gym with rows, and some LE exercises and stair stepper. Would like to continue UE strengethening and any LE could be doing. Patient Reported Progress Improving PT-OP-D Balance Start: 08/25/19 20:08 Freq: Status: Active Protocol: Document 08/29/19 09:45 LRN (Rec: 08/29/19 16:50 LRN [id number]) Balance Tests Hendrickson Balance Test Hendrickson Balance Test Score 51 Hendrickson Impairment Rating 1 to 19% Impaired (Score 45-55 ) Single Limb Standing Single Limb- Right 3 Single Limb- Left 9 Tandem Tandem Standing L foot back: 29.75, R foot back: 60, balance w/arms PT-OP-G Mobility & Gait Start: 08/25/19 20:08 Freq: Status: Active Protocol: Document 08/29/19 09:45 LRN (Rec: 08/29/19 16:50 LRN [id number]) OP Gait Assessment Gait Gait Assistance Required: Independent Able to Maintain Weight Bearing Status Yes During Gait Assistive Devices Assistive Device None Orthotic/Prosthetic Devices or Brace: No Gait Deviations General Gait Pattern Decreased Feet Clearance, Lateral Trunk Lean Comments Gait Comments RLE: Lacks heel strike and clearance of foot on swing through phase. Trendelenburg type gait with lean Right. Gait speed: 10' walk: 2.17 ft/sec 20' walk: 2.41 ft/sec (avg for 60-69 yr olds: 1.26 ft/sec, preferred 3.11 ft/sec, max 3.95 ft/sec) Stair Climbing Evaluation Evaluation Level of Assist On Stairs Independent Devices Stair Climbing Assistive Devices None Technique/Endurance Stair Climbing Direction Ascend and Descend Stair Climbing Technique Step Over Step Number of Steps Climbed 4 Stair Climbing Set # Repetitions (reps) 2 Comments Stair Climbing Comments Lacks smooth lift onto RLE ( shoves self up step on the right) ascending steps. PT-OP-H Neuro Start: 08/25/19 20:08 Freq: Status: Active Protocol: Document 08/29/19 09:45 LRN (Rec: 08/29/19 16:50 LRN [id number]) Sensation Evaluation Gross Sensation Gross Sensation WNL Coordination Evaluation Lower Extremity Tests Right Heel on Wen Test Minimal Impairment Lower Extremity Fixation/Position Normal Performance Holding Test Vital Signs Comments Vital Signs Comments Pt reports BP is usually 155/ 100 and Pulse is 55. PT-OP-J Posture/Palpation/Skin Start: 08/25/19 20:08 Freq: Status: Active Protocol: Document 08/29/19 09:45 LRN (Rec: 08/29/19 10:46 LRN [id number]) Posture Evaluation Position Standing Evaluation View All positions Head/C-Spine Posture Side Bent Left T-Spine Posture Increased Kyphosis L-Spine Posture Increased Lordosis Comments Posture Comments Mild sway back posturing. PT-OP-K Range of Motion Start: 08/25/19 20:08 Freq: Status: Active Protocol: Document 09/01/19 13:45 LRN (Rec: 09/01/19 14:54 LRN [id number]) Shoulder Goniometric Range of Motion Shoulder Right Active Flexion 180 Abduction 170 External Rotation at 90 degrees 90 Abduction Left Active Testing Position Sitting Flexion 180 Abduction 180 External Rotation at 90 degrees 90 Abduction Shoulder ROM Limitations Comments Sitting: Shoulder IR is WNL bilaterally. PT-OP-M Strength Start: 08/25/19 20:08 Freq: Status: Active Protocol: Document 09/01/19 13:45 LRN (Rec: 09/01/19 14:54 LRN [id number]) Shoulder Strength Shoulder Manual Muscle Testing Right Flexion 4 Good Abduction (C5) 3+ Fair+ External Rotation 3- Fair- Internal Rotation 5 Normal Left Flexion 5 Normal Abduction (C5) 5 Normal External Rotation 5 Normal Internal Rotation 5 Normal PT-OP-Q Treatments Start: 08/25/19 20:08 Freq: Status: Active Protocol: Document 09/19/19 12:26 SP (Rec: 09/19/19 13:20 SP [id number]) Cardio Equipment Elliptical Duration (Minutes) 6 Resistance 1 Other cued for wt shift between BLE and core facilitation, UE AROM for intro card Gym Equipment Cable Column (Body Solid) row Details cued scapular depression/ retraction, uprighposture/DNF Resistance 3# Reps/Time 2X10 Shuttle Recovery Unilateral squat Details bilateral Resistance 75 Reps/Time 10x2 bilateral squat Details cued for not locking knee Resistance 75 Reps/Time 10x2 Therapeutic Exercises Standing Exercises star taps Side bilateral Equipment Used chair safety contact Reps/Minutes 2x 10 Comments cued COg over PAYTON, slow pacing hurdles Standing Exercise Name froward step over step, lateral Side bilateral Reps/Minutes 3 laps each direction Comments cued slow pacing and awareness of Df foot clearance Wall slides Standing Exercise Name Wall clocks: vertical, diagonal, side Side right Resistance 0 & TB 1 Equipment Used wall Reps/Minutes 10x2 PT-OP-T Assessment and Plan Start: 08/25/19 20:08 Freq: Status: Active Protocol: Document 09/19/19 12:26 SP (Rec: 09/19/19 13:20 SP [id number]) Physical Therapy Assessment Goals Five Impairment R shoulder pain with use above shoulder height. Short Term Goal (STG) Increase R shoulder and normalize finger AB strength/ mobility to improve active use of R UE. STG Duration 10/28/19 Roto Mixer Operator Goal (LTG) Strengthen the R shoulder in order to be able to hang pots/ pans for storage without pain. LTG Duration 11/27/19 Four Impairment Decreased R ankle DF AROM Short Term Goal (STG) Improve active R ankle DF to 0 deg's STG Duration 10/28/19 Roto Mixer Operator Goal (LTG) Improve ankle DF AROM to no less than 5 deg's to improve gait mechanics and eliminate pt catching toes during gait and improving his safety with gait. LTG Duration 11/27/19 Three Impairment Decreased R ankle strength. Short Term Goal (STG) Improve R ankle EV strength to improve SLS for improved safety with gait. STG Duration 10/28/19 Nursing Home Goal (LTG) Improve R ankle DF strength to no less than 3+/5 to improve gait and minimize gait deviations to decreased risk of falling. LTG Duration 11/27/19 Two Impairment Decreased R hip/knee strength. Roto Mixer Operator Goal (LTG) Improve R hip and knee strength to no less than 4/5 in order to eliminate trendelenburg gait and normalize gait mechanics to improve safety with gait. LTG Duration 11/27/19 One Impairment Lacks independent self care HEP. Nursing Home Goal (LTG) Pt will be independent in a self care gym and HEP. LTG Duration 11/27/19 (09/01/19: Progressing) Assessment Summary Assessment Pt responded well to tx today, elliptical warm up, for full body ROM and awareness of slow pacing wt shift for endurance over BLE. Reviewed cable rows and initiated scaption wall clock to progress in OH reach and LT strengthening with contact of wall for allowance of posterior GH glide and scap depression with report of little tension and twinge but please to be able to do without pain. Intiated functional DF and balance SL star taps and progressed into sami stepping slow pacing, improved as laps progressed. Physical Therapy Plan Frequency and Duration Frequency of Treatment 1x/Week Plan of Care Start Date 08/29/19 Plan of Care End Date 11/27/19 Therapeutic Interventions Therapeutic Interventions Aquatic Therapy,Balance Training,Gait Training,Home Exercise Program,Neuromuscular Re-education,Patient/ Caregiver Education,Self-Care/ Home Management,Taping, Therapeutic Exercises Modalities Electric Stimulation Next Visit Focus/Plan Next Note Type Treatment Note Next Visit Plan Initiated elliptical, shuttle press safe alignment and SL balance activities to improve gait. Reviewed few UE HEP but continue next tx, continue elliptical/ TM, balance and LE strengthening, OH progression strengthening. Continue per PT POC: Review HEP of shoulder IR/ER/row/scap depression & Issue HEP for RC ex's. HEP also needed for: ankle DF, knee (flex/ext), & hip (AB/AD/ext/IR/ER), and trunk strengthening. Add scapular depressors and training for painfree flex/AB mobility (cable last tx, please give Tb home). JMT as needed. Check passive ankle DF/EV. Gait training for improved mechanics and speed of gait. Progress pt onto HEP/gym program, then decrease to 1x/week for f/u and advancement of program as needed.
--- NOTE | 2019-09-26 16:32 | PT.OTN ---
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 Current L foot plantar fasciitis. Hx of fx neck - 2003 PT-OP-B Current Condition Start: 08/25/19 20:08 Freq: Status: Active Protocol: Document 08/29/19 09:45 LRN (Rec: 08/29/19 10:46 LRN [id number]) Current Condition History of Current Condition Onset Date 07/25/19 Current Complaints Poor gait, weakness of RLE and shoulder, pain in R shoulder. History of Current Condition Pt reports having 5 strokes within a 6 day period. His final stroke was on 07/25/19 causing paralysis of his R side affecting his ERIK in the brainstem, and slurred speech . Prior Treatments and Tests MRI's and CT scans. Reports unavailable. Developmental History Developmental History 07/20/19, , , and . Pt reports 30min after having a flu shot on 07/20/19 he developed L sided headaches and R foot drop while at work. He also has a little trouble swallowing. He was given TPA at [facility], 10-15' later symptoms cleared. He was air lifted to [facility], then driven to [facility]. On he had a MRI and was given an Ativan x 2 due to claustrophobia and developed R facial droop for 1 -2 days. Given Ativan for another MRI and 20-30' later had total R paralysis. MRI showed no stroke. Symptom was only stuttering and he could walk w/o a cane. On 08/23/19 he was sent home to do physical therapy. On 08/24/19 his hand became shaky, went to bed, but realized his hand was loosing strength and became paralyzed on the R side , then the L side. After 10 minutes he was able to stand up and walk onto a stretcher and was taken to [facility]. He states by the time he reached [facility] he had recovered. A head CT found no brain change. Next day he was to be discharged, but within the hour to discharge he had another stroke with R LE paralysis. On 08/25/[address] to [facility] by personal car, and when he reached [facility] he was given another test that showed he had a stroke in the ERIK region of the brainstem. [facility] wanted him to do PT in , but he requested PT @ [facility] and did 2 weeks inpt PT prior to being discharged home. Treatment Goals Patient/Caregiver Goals Pt goal is to normalize gait to avoid developing back or hip problems. Pt goal is to strengthen the R shoulder to be able to hang pots/pans for storage. Pt goal is to be able to normalize the ability to open up the R hand (separate fingers). Pt goal is to be able to be placed on an exercise program he can continue at his local gym. 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 Current Functional Impairments (Reported) Functional Limitations- ADL's R shoulder pain with lifting of R UE out to the side and has difficulty hanging pots back up. Functional Limitations- Mobility/Gait Gait deviation due to R LE weakness. Walking, catches toes sometimes. Functional Limitations- Recreation/ 1 week of exercising (now on Hobbies 2nd week) at local gym 3x/week for 30 minutes and doing leg strengthening on machines. 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 Current L foot plantar fasciitis. Neck fx 2003. PT-OP-C Subjective Start: 08/25/19 20:08 Freq: Status: Active Protocol: Document 09/26/19 15:12 LRN (Rec: 09/26/19 16:27 LRN [id number]) OP-PT Subjective Patient Comments Patient Comments Pt states that he had been taking Lipitor and had to stop due to increased muscle pain in arms. States he has been doing scapular depression strengthening with the row machine. Patient Questionnaires ABC- Activity Specific Balance Confidence Scale ABC Score 80.625 ABC Functional Impairment 20 to <40% Impaired (Score 61- 80) Lower Extremity Functional Scale LEFS Score 42 LEFS Impairment 40 to 59% Impaired (Score 32- 47) PT-OP-D Balance Start: 08/25/19 20:08 Freq: Status: Active Protocol: Document 08/29/19 09:45 LRN (Rec: 08/29/19 16:50 LRN [id number]) Balance Tests Hendrickson Balance Test Hendrickson Balance Test Score 51 Hendrickson Impairment Rating 1 to 19% Impaired (Score 45-55 ) Single Limb Standing Single Limb- Right 3 Single Limb- Left 9 Tandem Tandem Standing L foot back: 29.75, R foot back: 60, balance w/arms PT-OP-G Mobility & Gait Start: 08/25/19 20:08 Freq: Status: Active Protocol: Document 08/29/19 09:45 LRN (Rec: 08/29/19 16:50 LRN [id number]) OP Gait Assessment Gait Gait Assistance Required: Independent Able to Maintain Weight Bearing Status Yes During Gait Assistive Devices Assistive Device None Orthotic/Prosthetic Devices or Brace: No Gait Deviations General Gait Pattern Decreased Feet Clearance, Lateral Trunk Lean Comments Gait Comments RLE: Lacks heel strike and clearance of foot on swing through phase. Trendelenburg type gait with lean Right. Gait speed: 10' walk: 2.17 ft/sec 20' walk: 2.41 ft/sec (avg for 60-69 yr olds: 1.26 ft/sec, preferred 3.11 ft/sec, max 3.95 ft/sec) Stair Climbing Evaluation Evaluation Level of Assist On Stairs Independent Devices Stair Climbing Assistive Devices None Technique/Endurance Stair Climbing Direction Ascend and Descend Stair Climbing Technique Step Over Step Number of Steps Climbed 4 Stair Climbing Set # Repetitions (reps) 2 Comments Stair Climbing Comments Lacks smooth lift onto RLE ( shoves self up step on the right) ascending steps. PT-OP-H Neuro Start: 08/25/19 20:08 Freq: Status: Active Protocol: Document 08/29/19 09:45 LRN (Rec: 08/29/19 16:50 LRN [id number]) Sensation Evaluation Gross Sensation Gross Sensation WNL Coordination Evaluation Lower Extremity Tests Right Heel on Wen Test Minimal Impairment Lower Extremity Fixation/Position Normal Performance Holding Test Vital Signs Comments Vital Signs Comments Pt reports BP is usually 155/ 100 and Pulse is 55. PT-OP-J Posture/Palpation/Skin Start: 08/25/19 20:08 Freq: Status: Active Protocol: Document 08/29/19 09:45 LRN (Rec: 08/29/19 10:46 LRN [id number]) Posture Evaluation Position Standing Evaluation View All positions Head/C-Spine Posture Side Bent Left T-Spine Posture Increased Kyphosis L-Spine Posture Increased Lordosis Comments Posture Comments Mild sway back posturing. PT-OP-K Range of Motion Start: 08/25/19 20:08 Freq: Status: Active Protocol: Document 09/01/19 13:45 LRN (Rec: 09/01/19 14:54 LRN [id number]) Shoulder Goniometric Range of Motion Shoulder Right Active Flexion 180 Abduction 170 External Rotation at 90 degrees 90 Abduction Left Active Testing Position Sitting Flexion 180 Abduction 180 External Rotation at 90 degrees 90 Abduction Shoulder ROM Limitations Comments Sitting: Shoulder IR is WNL bilaterally. PT-OP-M Strength Start: 08/25/19 20:08 Freq: Status: Active Protocol: Document 09/26/19 15:12 LRN (Rec: 09/26/19 16:27 LRN [id number]) Shoulder Strength Shoulder Manual Muscle Testing Right Flexion 4+ Good+ Extension 4+ Good+ Abduction (C5) 4- Good- Adduction 3+ Fair+ External Rotation 3+ Fair+ Internal Rotation 5 Normal Horizontal Abduction 4- Good- Horizontal Adduction 5 Normal PT-OP-Q Treatments Start: 08/25/19 20:08 Freq: Status: Active Protocol: Document 09/26/19 15:12 LRN (Rec: 09/26/19 16:27 LRN [id number]) Cardio Equipment Upper Body Ergometer (UBE) Duration (Minutes) 11 RPM 60 Height 5.5 Therapeutic Exercises Sidelying Exercises Shoulder AB Sidelying Exercise Name Shoulder AB Reps/Minutes 3x Comments MMT Shoulder Horiz AD Sidelying Exercise Name Shoulder Horiz AD Reps/Minutes 1x Comments MMT Shoulder Horz AB Sidelying Exercise Name Shoulder Horiz AB Side right Reps/Minutes 2x Isometric Hold Comments MMT R Shoulder AD Sidelying Exercise Name R Shoulder AD - Isometric Hold Side right Reps/Minutes 3' Standing Exercises Shoulder flex Standing Exercise Name Shoulder Flex w/MWM for scapular depression & retraction Comments MMt Scapular Depression Standing Exercise Name Scapular Depression Side bilateral Shoulder ER Standing Exercise Name Shoulder ER strengthening, alternating with IR Side right Resistance Lev 2 T-Band x 2 bands Reps/Minutes 30x Comments MMT Shoulder IR Standing Exercise Name Shoulder IR Comments MMT Manual Therapy Treatment Manual Techniques MWM Type MWM: Scap retract/depression with R shoulder AB/Flex Body Location R shoulder Body Position Standing Reps/Duration 8' Self-Care/Home Management Treatment Education Patient Education Home Exercise Program Activities Self-Care/Home Management Activities I/S pt to cont w/HEP. Added to HEP: R shoulder ADD in sidelie. PT-OP-T Assessment and Plan Start: 08/25/19 20:08 Freq: Status: Active Protocol: Document 09/26/19 15:12 LRN (Rec: 09/26/19 16:27 LRN [id number]) Physical Therapy Assessment Goals Five Impairment R shoulder pain with use above shoulder height. Short Term Goal (STG) Increase R shoulder and normalize finger AB strength/ mobility to improve active use of R UE. STG Duration 10/28/19 Shelter Goal (LTG) Strengthen the R shoulder in order to be able to hang pots/ pans for storage without pain. LTG Duration 11/27/19 Four Impairment Decreased R ankle DF AROM Short Term Goal (STG) Improve active R ankle DF to 0 deg's STG Duration 10/28/19 Shelter Goal (LTG) Improve ankle DF AROM to no less than 5 deg's to improve gait mechanics and eliminate pt catching toes during gait and improving his safety with gait. LTG Duration 11/27/19 Three Impairment Decreased R ankle strength. Short Term Goal (STG) Improve R ankle EV strength to improve SLS for improved safety with gait. STG Duration 10/28/19 Information Support Project Manager Goal (LTG) Improve R ankle DF strength to no less than 3+/5 to improve gait and minimize gait deviations to decreased risk of falling. LTG Duration 11/27/19 Two Impairment Decreased R hip/knee strength. Shelter Goal (LTG) Improve R hip and knee strength to no less than 4/5 in order to eliminate trendelenburg gait and normalize gait mechanics to improve safety with gait. LTG Duration 11/27/19 One Impairment Lacks independent self care HEP. Shelter Goal (LTG) Pt will be independent in a self care gym and HEP. LTG Duration 11/27/19 (09/01/19: Progressing) Assessment Summary Assessment Late entry of LEFS: 42/80 and ABC score = 80.625% confidence level. Started with UBE to assess R arm above shoulder tolerance. Pt weak with R shoulder ER & AB, mildly with Flex. He has extemely weak R lat dorsi ms and was unable to AD shoulder completely except in L sidelie. Able to eliminate R shoulder pain during AB with MWM. Physical Therapy Plan Frequency and Duration Frequency of Treatment 1x/Week Plan of Care Start Date 08/29/19 Plan of Care End Date 11/27/19 Next Visit Focus/Plan Next Note Type Treatment Note Next Visit Plan Complete review of UE HEP ( shoulder row/scap depression) & review of R shoulder AD. Add shoulder horiz AB strengthening & continue aerobic conditioning of UE's with UBE to increase tolerance to overhead movement; balance training and ankle/hip/knee ( probably primarily ankle) strengthening; can cont elliptical/TM as needed for balance. Continue per PT POC: Issue HEP for RC ex's. Check passive ankle DF/EV. HEP also needed for: ankle DF, knee (flex/ext) , & hip (AB/AD/ext/IR/ER), and trunk strengthening. Continue scapular depressor strengthening and training for painfree flex/AB mobility. JMT as needed. Gait training for improved mechanics and speed of gait. Progress pt onto HEP/gym program, then decrease to 1x/week for f/u and advancement of program as needed.
--- NOTE | 2019-10-10 14:20 | PT.OTN ---
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 Current L foot plantar fasciitis. Hx of fx neck - 2003 PT-OP-B Current Condition Start: 08/25/19 20:08 Freq: Status: Active Protocol: Document 08/29/19 09:45 LRN (Rec: 08/29/19 10:46 LRN [id number]) Current Condition History of Current Condition Onset Date 07/25/19 Current Complaints Poor gait, weakness of RLE and shoulder, pain in R shoulder. History of Current Condition Pt reports having 5 strokes within a 6 day period. His final stroke was on 07/25/19 causing paralysis of his R side affecting his ERIK in the brainstem, and slurred speech . Prior Treatments and Tests MRI's and CT scans. Reports unavailable. Developmental History Developmental History 07/20/19, , , and . Pt reports 30min after having a flu shot on 07/20/19 he developed L sided headaches and R foot drop while at work. He also has a little trouble swallowing. He was given TPA at [facility], 10-15' later symptoms cleared. He was air lifted to [facility], then driven to [facility]. On he had a MRI and was given an Ativan x 2 due to claustrophobia and developed R facial droop for 1 -2 days. Given Ativan for another MRI and 20-30' later had total R paralysis. MRI showed no stroke. Symptom was only stuttering and he could walk w/o a cane. On 08/23/19 he was sent home to do physical therapy. On 08/24/19 his hand became shaky, went to bed, but realized his hand was loosing strength and became paralyzed on the R side , then the L side. After 10 minutes he was able to stand up and walk onto a stretcher and was taken to [facility]. He states by the time he reached [facility] he had recovered. A head CT found no brain change. Next day he was to be discharged, but within the hour to discharge he had another stroke with R LE paralysis. On 08/25/18 [address] to [facility] by personal car, and when he reached [facility] he was given another test that showed he had a stroke in the ERIK region of the brainstem. [facility] wanted him to do PT in , but he requested PT @ [facility] and did 2 weeks in PT prior to being discharged home. Treatment Goals Patient/Caregiver Goals Pt goal is to normalize gait to avoid developing back or hip problems. Pt goal is to strengthen the R shoulder to be able to hang pots/pans for storage. Pt goal is to be able to normalize the ability to open up the R hand (separate fingers). Pt goal is to be able to be placed on an exercise program he can continue at his local gym. 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 Current Functional Impairments (Reported) Functional Limitations- ADL's R shoulder pain with lifting of R UE out to the side and has difficulty hanging pots back up. Functional Limitations- Mobility/Gait Gait deviation due to R LE weakness. Walking, catches toes sometimes. Functional Limitations- Recreation/ 1 week of exercising (now on Hobbies 2nd week) at local gym 3x/week for 30 minutes and doing leg strengthening on machines. 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 Current L foot plantar fasciitis. Neck fx 2003. PT-OP-C Subjective Start: 08/25/19 20:08 Freq: Status: Active Protocol: Document 10/10/19 12:47 LRN (Rec: 10/10/19 13:39 LRN [id number]) OP-PT Subjective Patient Comments Patient Comments States he has been sick for 2 weeks and then through out his back last week; therefore he has not been able to exercise or move well. He does note that his plantar fasciitis is getting better, less painful. PT-OP-D Balance Start: 08/25/19 20:08 Freq: Status: Active Protocol: Document 08/29/19 09:45 LRN (Rec: 08/29/19 16:50 LRN [id number]) Balance Tests Hendrickson Balance Test Hendrickson Balance Test Score 51 Hendrickson Impairment Rating 1 to 19% Impaired (Score 45-55 ) Single Limb Standing Single Limb- Right 3 Single Limb- Left 9 Tandem Tandem Standing L foot back: 29.75, R foot back: 60, balance w/arms PT-OP-G Mobility & Gait Start: 08/25/19 20:08 Freq: Status: Active Protocol: Document 08/29/19 09:45 LRN (Rec: 08/29/19 16:50 LRN [id number]) OP Gait Assessment Gait Gait Assistance Required: Independent Able to Maintain Weight Bearing Status Yes During Gait Assistive Devices Assistive Device None Orthotic/Prosthetic Devices or Brace: No Gait Deviations General Gait Pattern Decreased Feet Clearance, Lateral Trunk Lean Comments Gait Comments RLE: Lacks heel strike and clearance of foot on swing through phase. Trendelenburg type gait with lean Right. Gait speed: 10' walk: 2.17 ft/sec 20' walk: 2.41 ft/sec (avg for 60-69 yr olds: 1.26 ft/sec, preferred 3.11 ft/sec, max 3.95 ft/sec) Stair Climbing Evaluation Evaluation Level of Assist On Stairs Independent Devices Stair Climbing Assistive Devices None Technique/Endurance Stair Climbing Direction Ascend and Descend Stair Climbing Technique Step Over Step Number of Steps Climbed 4 Stair Climbing Set # Repetitions (reps) 2 Comments Stair Climbing Comments Lacks smooth lift onto RLE ( shoves self up step on the right) ascending steps. PT-OP-H Neuro Start: 08/25/19 20:08 Freq: Status: Active Protocol: Document 08/29/19 09:45 LRN (Rec: 08/29/19 16:50 LRN [id number]) Sensation Evaluation Gross Sensation Gross Sensation WNL Coordination Evaluation Lower Extremity Tests Right Heel on Wen Test Minimal Impairment Lower Extremity Fixation/Position Normal Performance Holding Test Vital Signs Comments Vital Signs Comments Pt reports BP is usually 155/ 100 and Pulse is 55. PT-OP-J Posture/Palpation/Skin Start: 08/25/19 20:08 Freq: Status: Active Protocol: Document 08/29/19 09:45 LRN (Rec: 08/29/19 10:46 LRN [id number]) Posture Evaluation Position Standing Evaluation View All positions Head/C-Spine Posture Side Bent Left T-Spine Posture Increased Kyphosis L-Spine Posture Increased Lordosis Comments Posture Comments Mild sway back posturing. PT-OP-K Range of Motion Start: 08/25/19 20:08 Freq: Status: Active Protocol: Document 09/01/19 13:45 LRN (Rec: 09/01/19 14:54 LRN [id number]) Shoulder Goniometric Range of Motion Shoulder Right Active Flexion 180 Abduction 170 External Rotation at 90 degrees 90 Abduction Left Active Testing Position Sitting Flexion 180 Abduction 180 External Rotation at 90 degrees 90 Abduction Shoulder ROM Limitations Comments Sitting: Shoulder IR is WNL bilaterally. PT-OP-M Strength Start: 08/25/19 20:08 Freq: Status: Active Protocol: Document 09/26/19 15:12 LRN (Rec: 09/26/19 16:27 LRN [id number]) Shoulder Strength Shoulder Manual Muscle Testing Right Flexion 4+ Good+ Extension 4+ Good+ Abduction (C5) 4- Good- Adduction 3+ Fair+ External Rotation 3+ Fair+ Internal Rotation 5 Normal Horizontal Abduction 4- Good- Horizontal Adduction 5 Normal PT-OP-Q Treatments Start: 08/25/19 20:08 Freq: Status: Active Protocol: Document 10/10/19 12:47 LRN (Rec: 10/10/19 13:39 LRN [id number]) Cardio Equipment Upper Body Ergometer (UBE) Duration (Minutes) 10 RPM 60 Height 6 Therapeutic Exercises Sitting Exercises Ankle DF Sitting Exercise Name Ankle DF: Active Side right Reps/Minutes 30x Comments Ankle @ 90 deg's: able to DF ~ 5 deg's Ankle IV Sitting Exercise Name Ankle IV Side bilateral Resistance Lev 3 TB Reps/Minutes 30x Ankle EV Sitting Exercise Name Ankle EV Side bilateral Resistance Lev 3 TB Reps/Minutes 30x Standing Exercises Arm circles Standing Exercise Name Shoulders ~50 deg's AB: painfree small arm circles Side bilateral Reps/Minutes 10x Shoulder circles Standing Exercise Name Shoulder rolls in [place] Side bilateral Reps/Minutes 10x Shoulder ER/IR w/arm 90 deg AB Standing Exercise Name Shoulders: active ER > arm in 50 deg's AB for IR Side bilateral Reps/Minutes 10x Comments Hands moving: behind head > behind back Shoulder AB Standing Exercise Name Jumping [place] arm swings Side bilateral Reps/Minutes 10x Scapular Depression Standing Exercise Name Scapular Depression (Straight arm shoulder ext) Side bilateral Resistance L3 Tband Reps/Minutes 10x Row Standing Exercise Name Row Side bilateral Resistance L3 Tband Reps/Minutes 10 x Comments Breath cuing, extra time taken for training of ex with breath work. Shoulder ER Standing Exercise Name Shoulder ER strengthening Side bilateral Resistance Lev 3 T-Band Reps/Minutes 10x Shoulder IR Standing Exercise Name Shoulder IR strengthening Side bilateral Resistance Lev 3 T-Band Reps/Minutes 10x Self-Care/Home Management Treatment Education Patient Education Home Exercise Program Activities Self-Care/Home Management Activities Reviewed and issued HEP: General shoulder strengthening , reissued ankle T-Band strengthening (EV/IV), added ankle DF strengthening handout . PT-OP-T Assessment and Plan Start: 08/25/19 20:08 Freq: Status: Active Protocol: Document 10/10/19 12:47 LRN (Rec: 10/10/19 13:39 LRN [id number]) Physical Therapy Assessment Goals Five Impairment R shoulder pain with use above shoulder height. Short Term Goal (STG) Increase R shoulder and normalize finger AB strength/ mobility to improve active use of R UE. STG Duration 10/28/19 Coordinate Measuring Machine Programmer Goal (LTG) Strengthen the R shoulder in order to be able to hang pots/ pans for storage without pain. LTG Duration 11/27/19 Four Impairment Decreased R ankle DF AROM Short Term Goal (STG) Improve active R ankle DF to 0 deg's STG Duration 10/28/19 Coordinate Measuring Machine Programmer Goal (LTG) Improve ankle DF AROM to no less than 5 deg's to improve gait mechanics and eliminate pt catching toes during gait and improving his safety with gait. LTG Duration 11/27/19 Three Impairment Decreased R ankle strength. Short Term Goal (STG) Improve R ankle EV strength to improve SLS for improved safety with gait. STG Duration 10/28/19 Alf Goal (LTG) Improve R ankle DF strength to no less than 3+/5 to improve gait and minimize gait deviations to decreased risk of falling. LTG Duration 11/27/19 Two Impairment Decreased R hip/knee strength. Coordinate Measuring Machine Programmer Goal (LTG) Improve R hip and knee strength to no less than 4/5 in order to eliminate trendelenburg gait and normalize gait mechanics to improve safety with gait. LTG Duration 11/27/19 One Impairment Lacks independent self care HEP. Alf Goal (LTG) Pt will be independent in a self care gym and HEP. LTG Duration 11/27/19 (09/01/19: Progressing) Assessment Summary Assessment Pt tolerated exercise well and could exercise with minimal discomfort if his arm was below 90 deg's AB. The was able to activel DF the R foot in 90/90 positioning in sitting. He forgot his HEP handouts for general shoulder ex's, but he did leave with shoulder AD & horiz AD & ankle strengthening handout. Physical Therapy Plan Frequency and Duration Frequency of Treatment 1x/Week Plan of Care Start Date 08/29/19 Plan of Care End Date 11/27/19 Next Visit Focus/Plan Next Note Type Treatment Note Next Visit Plan Check passive ankle DF/EV. Pt primarily on HEP/gym program 1x/week for f/u and advancement of program as needed. HEP for knee (flex/ ext), & hip (AB/AD/ext/IR/ER), and trunk strengthening. Review of UE HEP (shoulder row /scap depression) & R shoulder AD & horiz AD/AB, and balance ex's. Continue aerobic conditioning of UE's with UBE to increase tolerance to overhead movement; ankle/ hip/knee (probably primarily ankle) strengthening; can cont elliptical/TM as needed for balance. PT POC: Scapular depressor strengthening and training for painfree shoulder flex/AB mobility. JMT as needed. Gait training for improved mechanics and speed of gait.
--- NOTE | 2019-10-13 11:41 | PT-OP ANOTE ---
Message received that pt wishes to continue therapy, but too worried about CV19 and that he understands he will need a new referral to return to PT.
--- NOTE | 2019-10-13 11:50 | PT.OPDS ---
Current Diagnoses Weakness (10/10/19) Other reduced mobility (10/10/19) Visit Care Team Role Provider Type Kd Melendez MD Primary Care Provider Physician Specialty: Family Practice Address: [address] [place] [address] [address], [place], [address] Email: [email or web address] Ted Hubbard Attending Provider Non-Staff Specialty: Medical Address: [address] [place] [address], [facility] [address], [place], [address] Email: Visit Number Visit Number 7 Discharge Summary PT-OP-B Current Condition Start: 08/25/19 20:08 Freq: Status: Active Protocol: Document 08/29/19 09:45 LRN (Rec: 08/29/19 10:46 LRN [id number]) Current Condition History of Current Condition Onset Date 07/25/19 Current Complaints Poor gait, weakness of RLE and shoulder, pain in R shoulder. History of Current Condition Pt reports having 5 strokes within a 6 day period. His final stroke was on 07/25/19 causing paralysis of his R side affecting his ERIK in the brainstem, and slurred speech . Prior Treatments and Tests MRI's and CT scans. Reports unavailable. Developmental History Developmental History 07/20/19, , , and . Pt reports 30min after having a flu shot on 07/20/19 he developed L sided headaches and R foot drop while at work. He also has a little trouble swallowing. He was given TPA at [facility], 10-15' later symptoms cleared. He was air lifted to [facility], then driven to [facility]. On he had a MRI and was given an Ativan x 2 due to claustrophobia and developed R facial droop for 1 -2 days. Given Ativan for another MRI and 20-30' later had total R paralysis. MRI showed no stroke. Symptom was only stuttering and he could walk w/o a cane. On 08/23/19 he was sent home to do physical therapy. On 08/24/19 his hand became shaky, went to bed, but realized his hand was loosing strength and became paralyzed on the R side , then the L side. After 10 minutes he was able to stand up and walk onto a stretcher and was taken to [facility]. He states by the time he reached [facility] he had recovered. A head CT found no brain change. Next day he was to be discharged, but within the hour to discharge he had another stroke with R LE paralysis. On 08/25/18 he was taken to [facility] by personal car, and when he reached [facility] he was given another test that showed he had a stroke in the ERIK region of the brainstem. [facility] wanted him to do PT in , but he requested PT @ [facility] and did 2 weeks in PT prior to being discharged home. Treatment Goals Patient/Caregiver Goals Pt goal is to normalize gait to avoid developing back or hip problems. Pt goal is to strengthen the R shoulder to be able to hang pots/pans for storage. Pt goal is to be able to normalize the ability to open up the R hand (separate fingers). Pt goal is to be able to be placed on an exercise program he can continue at his local gym. 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 Current Functional Impairments (Reported) Functional Limitations- ADL's R shoulder pain with lifting of R UE out to the side and has difficulty hanging pots back up. Functional Limitations- Mobility/Gait Gait deviation due to R LE weakness. Walking, catches toes sometimes. Functional Limitations- Recreation/ 1 week of exercising (now on Hobbies 2nd week) at local gym 3x/week for 30 minutes and doing leg strengthening on machines. 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 Current L foot plantar fasciitis. Neck fx 2003. PT-OP-C Subjective Start: 08/25/19 20:08 Freq: Status: Active Protocol: Document 10/10/19 12:47 LRN (Rec: 10/10/19 13:39 LRN [id number]) OP-PT Subjective Patient Comments Patient Comments States he has been sick for 2 weeks and then through out his back last week; therefore he has not been able to exercise or move well. He does note that his plantar fasciitis is getting better, less painful. PT-OP-D Balance Start: 08/25/19 20:08 Freq: Status: Active Protocol: Document 08/29/19 09:45 LRN (Rec: 08/29/19 16:50 LRN [id number]) Balance Tests Hendrickson Balance Test Hendrickson Balance Test Score 51 Hendrickson Impairment Rating 1 to 19% Impaired (Score 45-55 ) Single Limb Standing Single Limb- Right 3 Single Limb- Left 9 Tandem Tandem Standing L foot back: 29.75, R foot back: 60, balance w/arms PT-OP-G Mobility & Gait Start: 08/25/19 20:08 Freq: Status: Active Protocol: Document 08/29/19 09:45 LRN (Rec: 08/29/19 16:50 LRN [id number]) OP Gait Assessment Gait Gait Assistance Required: Independent Able to Maintain Weight Bearing Status Yes During Gait Assistive Devices Assistive Device None Orthotic/Prosthetic Devices or Brace: No Gait Deviations General Gait Pattern Decreased Feet Clearance, Lateral Trunk Lean Comments Gait Comments RLE: Lacks heel strike and clearance of foot on swing through phase. Trendelenburg type gait with lean Right. Gait speed: 10' walk: 2.17 ft/sec 20' walk: 2.41 ft/sec (avg for 60-69 yr olds: 1.26 ft/sec, preferred 3.11 ft/sec, max 3.95 ft/sec) Stair Climbing Evaluation Evaluation Level of Assist On Stairs Independent Devices Stair Climbing Assistive Devices None Technique/Endurance Stair Climbing Direction Ascend and Descend Stair Climbing Technique Step Over Step Number of Steps Climbed 4 Stair Climbing Set # Repetitions (reps) 2 Comments Stair Climbing Comments Lacks smooth lift onto RLE ( shoves self up step on the right) ascending steps. PT-OP-H Neuro Start: 08/25/19 20:08 Freq: Status: Active Protocol: Document 08/29/19 09:45 LRN (Rec: 08/29/19 16:50 LRN [id number]) Sensation Evaluation Gross Sensation Gross Sensation WNL Coordination Evaluation Lower Extremity Tests Right Heel on Wen Test Minimal Impairment Lower Extremity Fixation/Position Normal Performance Holding Test Vital Signs Comments Vital Signs Comments Pt reports BP is usually 155/ 100 and Pulse is 55. PT-OP-J Posture/Palpation/Skin Start: 08/25/19 20:08 Freq: Status: Active Protocol: Document 08/29/19 09:45 LRN (Rec: 08/29/19 10:46 LRN [id number]) Posture Evaluation Position Standing Evaluation View All positions Head/C-Spine Posture Side Bent Left T-Spine Posture Increased Kyphosis L-Spine Posture Increased Lordosis Comments Posture Comments Mild sway back posturing. PT-OP-K Range of Motion Start: 08/25/19 20:08 Freq: Status: Active Protocol: Document 09/01/19 13:45 LRN (Rec: 09/01/19 14:54 LRN [id number]) Shoulder Goniometric Range of Motion Shoulder Right Active Flexion 180 Abduction 170 External Rotation at 90 degrees 90 Abduction Left Active Testing Position Sitting Flexion 180 Abduction 180 External Rotation at 90 degrees 90 Abduction Shoulder ROM Limitations Comments Sitting: Shoulder IR is WNL bilaterally. PT-OP-M Strength Start: 08/25/19 20:08 Freq: Status: Active Protocol: Document 09/26/19 15:12 LRN (Rec: 09/26/19 16:27 LRN [id number]) Shoulder Strength Shoulder Manual Muscle Testing Right Flexion 4+ Good+ Extension 4+ Good+ Abduction (C5) 4- Good- Adduction 3+ Fair+ External Rotation 3+ Fair+ Internal Rotation 5 Normal Horizontal Abduction 4- Good- Horizontal Adduction 5 Normal PT-OP-T Assessment and Plan Start: 08/25/19 20:08 Freq: Status: Active Protocol: Document 10/13/19 11:42 LRN (Rec: 10/13/19 11:50 LRN [id number]) Physical Therapy Assessment Goals Five Impairment R shoulder pain with use above shoulder height. Short Term Goal (STG) Increase R shoulder and normalize finger AB strength/ mobility to improve active use of R UE. STG Duration 10/28/19 (10/13/19: Not assessed) Directional Drill Operator Goal (LTG) Strengthen the R shoulder in order to be able to hang pots/ pans for storage without pain. LTG Duration 11/27/19 (10/13/19: Not assessed) Four Impairment Decreased R ankle DF AROM Short Term Goal (STG) Improve active R ankle DF to 0 deg's STG Duration 10/28/19 (10/13/19: Not assessed) Directional Drill Operator Goal (LTG) Improve ankle DF AROM to no less than 5 deg's to improve gait mechanics and eliminate pt catching toes during gait and improving his safety with gait. LTG Duration 11/27/19 (10/13/19: Not assessed) Three Impairment Decreased R ankle strength. Short Term Goal (STG) Improve R ankle EV strength to improve SLS for improved safety with gait. STG Duration 10/28/19 (10/13/19: Not assessed) Correction Goal (LTG) Improve R ankle DF strength to no less than 3+/5 to improve gait and minimize gait deviations to decreased risk of falling. LTG Duration 11/27/19 (10/13/19: Not assessed) Two Impairment Decreased R hip/knee strength. Directional Drill Operator Goal (LTG) Improve R hip and knee strength to no less than 4/5 in order to eliminate trendelenburg gait and normalize gait mechanics to improve safety with gait. LTG Duration 11/27/19 (10/13/19: Not assessed) One Impairment Lacks independent self care HEP. Correction Goal (LTG) Pt will be independent in a self care gym and HEP. LTG Duration 11/27/19 (09/01/19: Progressing) Assessment Summary Assessment Pt has been seen for his eval and 6 visits. He had not been assessed for progress to his goals due to his early request for discharge, but has been progressed on his HEP. The pt would benefit from continued physical therapy, but the pt is choosing to discharge from therapy due to health concerns of noemy Doe Virus 19. He is aware that he will need a new referral to return to physical therapy. Physical Therapy Plan Discharge Physical Therapy Discharge Reasons Patient Request Discharge Comments Pt discharging early and is not completing his rehabilitation program due to health concerns of the CV19. The pt would benefit from further therapy when he feels safe to return. Thank you for your referral.
== END 2019-10-13 13:50 ==
LOC: PHYS 12:45
PROVIDERS: PCP Family Medicine; Visit Provider Physical Medicine & Rehabilitation
DX: Z74.09 Other reduced mobility (principal); R53.1 Weakness
CPT/HCPCS: 97110; 97140; 97161